=== PATIENT | female | born 1965 | race Caucasian/White ===

== ENCOUNTER 2018-04-29 12:38 | Emergency (ER) | payer BC | END 2018-04-29 13:10 | disposition left against medical advice (07) | LOC: ED 12:38 | DX: Z53.21 Procedure and treatment not carried out due to patient leaving prior to being seen by health care provider (principal) ==

== ENCOUNTER 2018-07-28 09:11 | Emergency (ER) | payer BC ==
[~2018-07-28] VITALS: Ht 165.1 cm; Wt 71.7 kg
[2018-07-28 09:12] VITALS: BP 155/94; Ht 165.1 cm; Wt 71.7 kg
== END 2018-07-28 10:35 | disposition home or self-care (01) ==
LOC: ED 09:11
DX: K59.00 Constipation, unspecified (principal); Z98.890 Other specified postprocedural states